=== PATIENT | male | born 1955 | race Caucasian/White ===

== ENCOUNTER 2016-11-11 14:20 | Day surgery (SDC) | payer OTHER ==
[~2016-11-11] VITALS: Ht 188 cm; Wt 90.7 kg
[~2016-11-11 14:20] MED LIST: ASPIRIN81 M1 PO; CATAPRES0.1 MG PO; CYCLOBENZAPRINE10 M1 PO; EFFEXOR XR150 MG PO; EFFEXOR75 MG PO; ELAVIL25 MG PO; FLEXERIL10 MG PO; FLOMAX0.4 MG PO; GLUCOPHAGE500 MG PO; LIPITOR20 MG PO; LORAZEPAM1 MG PO; METHADONE5 MG PO; MIRTAZAPINE30 MG PO; MYRBETRIQ50 MG PO; NAPROSYN500 MG PO; NEURONTIN300 MG PO; NORVASC10 MG PO; NORVASC5 MG PO; PERCOCET 5/31 TABLET PO; SEROQUEL100 MG PO; SEROQUEL50 MG PO; VICODIN,LORT1 TABLET PO; VITAMIN D-32000 UNI2 PO; [UNRECOGNIZED DRUG - REMARK]
[2016-11-11 15:09] LABS: POINT-OF-CARE METER ID UU14174212; POINT-OF-CARE USER ID AHSRSCSLC11
== END 2016-11-11 15:50 | disposition home or self-care (01) ==
LOC: PAIN 14:20 → SDC 15:00 → PAIN 15:50
PROVIDERS: Anesthesiology Pain Medicine
PROC: 015B3ZZ Destruction of Lumbar Nerve, Percutaneous Approach (ICD-10-PCS; principal; 2016-11-11)
DX: M47.26 Other spondylosis with radiculopathy, lumbar region (principal); F41.9 Anxiety disorder, unspecified; M51.36 Other intervertebral disc degeneration, lumbar region; M79.1 Myalgia; Z87.891 Personal history of nicotine dependence; G89.29 Other chronic pain; J44.9 Chronic obstructive pulmonary disease, unspecified; E11.9 Type 2 diabetes mellitus without complications; K21.9 Gastro-esophageal reflux disease without esophagitis; G47.30 Sleep apnea, unspecified
CPT/HCPCS: 82948; J1030; J2250; J3010; S0020

== ENCOUNTER 2017-10-27 06:58 | Day surgery (SDC) | payer OTHER ==
[~2017-10-27] VITALS: Ht 188 cm; Wt 90.8 kg
== END 2017-10-27 08:35 | disposition home or self-care (01) ==
LOC: PAIN 06:58 → SDC 07:30 → PAIN 07:30
PROVIDERS: Anesthesiology Pain Medicine
DX: M47.816 Spondylosis without myelopathy or radiculopathy, lumbar region (principal); M96.1 Postlaminectomy syndrome, not elsewhere classified; G89.29 Other chronic pain; M54.17 Radiculopathy, lumbosacral region; Z87.891 Personal history of nicotine dependence; J44.9 Chronic obstructive pulmonary disease, unspecified; E11.9 Type 2 diabetes mellitus without complications; I10 Essential (primary) hypertension; E78.5 Hyperlipidemia, unspecified; G47.30 Sleep apnea, unspecified; Z88.1 Allergy status to other antibiotic agents; Z88.8 Allergy status to other drugs, medicaments and biological substances
CPT/HCPCS: 82948; J1030; J2250; S0020